=== PATIENT | female | born 1945 | race Caucasian/White ===

== ENCOUNTER 2017-02-27 11:15 | Outpatient (RCR) | payer OTHER | END 2017-02-28 | disposition home or self-care (01) | LOC: PTY 11:15 | DX: M17.12 Unilateral primary osteoarthritis, left knee (principal) | CPT/HCPCS: 97110; 97161; G0283 ==

== ENCOUNTER 2017-03-28 10:15 | Outpatient (RCR) | payer OTHER | END 2017-03-30 | disposition home or self-care (01) | LOC: PTY 10:15 | DX: M17.12 Unilateral primary osteoarthritis, left knee (principal) | CPT/HCPCS: 97110; G0283 ==

== ENCOUNTER 2017-04-26 14:10 | Outpatient (RCR) | payer OTHER | END 2017-04-30 | disposition home or self-care (01) | LOC: PTY 14:10 | PROVIDERS: ATTEND Internal Medicine | DX: S16.1XXD Strain of muscle, fascia and tendon at neck level, subsequent encounter (principal); M17.12 Unilateral primary osteoarthritis, left knee | CPT/HCPCS: 97110; 97162; G0283 ==

== ENCOUNTER 2017-04-29 11:00 | Outpatient (RCR) | payer OTHER | END 2017-04-30 | disposition home or self-care (01) | LOC: PTY 11:00 | DX: M17.12 Unilateral primary osteoarthritis, left knee (principal) | CPT/HCPCS: 97035; 97110; G0283 ==

== ENCOUNTER 2017-05-27 10:52 | Outpatient (RCR) | payer OTHER | END 2017-05-30 | disposition home or self-care (01) | LOC: PTY 10:52 | DX: M17.12 Unilateral primary osteoarthritis, left knee (principal) ==

== ENCOUNTER 2017-05-29 13:00 | Outpatient (RCR) | payer OTHER | END 2017-05-30 | disposition home or self-care (01) | LOC: PTY 13:00 | PROVIDERS: ATTEND Internal Medicine | DX: S16.1XXD Strain of muscle, fascia and tendon at neck level, subsequent encounter (principal); M17.12 Unilateral primary osteoarthritis, left knee | CPT/HCPCS: 97035; 97110; 97140; G0283 ==

== ENCOUNTER 2017-06-04 14:00 | Outpatient (RCR) | payer OTHER | END 2017-06-30 | disposition home or self-care (01) | LOC: PTY 14:00 | DX: M17.12 Unilateral primary osteoarthritis, left knee (principal) ==

== ENCOUNTER 2017-06-25 11:00 | Outpatient (RCR) | payer OTHER | END 2017-06-30 | disposition home or self-care (01) | LOC: PTY 11:00 | PROVIDERS: ATTEND Internal Medicine | DX: S16.1XXD Strain of muscle, fascia and tendon at neck level, subsequent encounter (principal); M17.12 Unilateral primary osteoarthritis, left knee ==

== ENCOUNTER 2017-07-02 10:51 | Outpatient (RCR) | payer OTHER | END 2017-07-31 | disposition home or self-care (01) | LOC: PTY 10:51 | PROVIDERS: ATTEND Internal Medicine | DX: M17.12 Unilateral primary osteoarthritis, left knee (principal); S16.1XXD Strain of muscle, fascia and tendon at neck level, subsequent encounter ==

== ENCOUNTER 2017-08-02 13:00 | Outpatient (RCR) | payer OTHER | END 2017-08-28 | disposition home or self-care (01) | LOC: PTY 13:00 | PROVIDERS: ATTEND Internal Medicine | DX: M17.12 Unilateral primary osteoarthritis, left knee (principal); S16.1XXD Strain of muscle, fascia and tendon at neck level, subsequent encounter ==

== ENCOUNTER 2017-08-16 14:00 | Outpatient (RCR) | payer OTHER | END 2017-08-28 | disposition home or self-care (01) | LOC: PTY 14:00 | PROVIDERS: ATTEND Internal Medicine | DX: M54.12 Radiculopathy, cervical region (principal); M77.11 Lateral epicondylitis, right elbow ==

== ENCOUNTER 2017-09-04 14:30 | Outpatient (RCR) | payer OTHER | END 2017-09-28 | disposition home or self-care (01) | LOC: PTY 14:30 | PROVIDERS: ATTEND Internal Medicine | DX: S16.1XXD Strain of muscle, fascia and tendon at neck level, subsequent encounter (principal); M54.12 Radiculopathy, cervical region; M77.11 Lateral epicondylitis, right elbow; X58.XXXD Exposure to other specified factors, subsequent encounter ==

== ENCOUNTER 2017-11-08 14:15 | Outpatient (RCR) | payer OTHER | END 2017-11-28 | disposition home or self-care (01) | LOC: PTY 14:15 | PROVIDERS: ATTEND Internal Medicine | DX: M54.12 Radiculopathy, cervical region (principal); M77.11 Lateral epicondylitis, right elbow ==

== ENCOUNTER 2017-12-06 13:15 | Outpatient (RCR) | payer OTHER | END 2017-12-28 | disposition home or self-care (01) | LOC: PTY 13:15 | PROVIDERS: ATTEND Internal Medicine | DX: M54.12 Radiculopathy, cervical region (principal); M77.11 Lateral epicondylitis, right elbow | CPT/HCPCS: 97110; 97140; G0283 ==